=== PATIENT | female | born 1965 | race Caucasian/White ===

== ENCOUNTER 2024-07-24 14:17 | Emergency (ER) | payer OTHER ==
[~2024-07-24] VITALS: Ht 152.4 cm; Wt 64.0 kg
[2024-07-24 14:22] VITALS: O2SAT 100
[2024-07-24 14:31] VITALS: BP 140/59; PULSE 77; RESP 18; TEMP 98.1; O2SAT 99
[2024-07-24] MEDS ORDERED: BO1 TP (15:18)
[2024-07-24] MEDS: TETANUS, DIPHTHERIA, PERTUSSIS VAC/PF 0.5ML (>10YR OLD) IM ONE (15:48)
[2024-07-24] MEDS: BACITRACIN ZINC OINT UDPKT TOP ONE (15:48)
== END 2024-07-24 16:07 | disposition home or self-care (01) ==
LOC: ER 14:17
DX: S91.312A Laceration without foreign body, left foot, initial encounter (principal); Z98.890 Other specified postprocedural states; W45.0XXA Nail entering through skin, initial encounter; Y93.89 Activity, other specified; Y92.89 Other specified places as the place of occurrence of the external cause; Y99.8 Other external cause status
CPT/HCPCS: 73630; 90471; 90715; 99283

== ENCOUNTER 2025-07-19 08:20 | Emergency (ER) | payer OTHER ==
[~2025-07-19] VITALS: Ht 160 cm; Wt 75.0 kg
[~2025-07-19 08:20] MED LIST: BO1 TP
[2025-07-19 08:28] VITALS: PULSE 100; RESP 18; O2SAT 100
[2025-07-19 08:33] VITALS: BP 117/65; TEMP 36.9; O2SAT 100
[2025-07-19] MEDS ORDERED: ONDA4TAB50 MT (09:03)
[2025-07-19] MEDS ORDERED: MECL-299 MT (09:03)
== END 2025-07-19 09:42 | disposition home or self-care (01) ==
LOC: ER 08:20
DX: H83.01 Labyrinthitis, right ear (principal); B34.9 Viral infection, unspecified; H93.11 Tinnitus, right ear
CPT/HCPCS: 99283